=== PATIENT | female | born 1985 | race Two or more races ===

== ENCOUNTER 2019-02-27 10:04 | Emergency (ER) | payer OTHER, SELFPAY ==
[~2019-02-27] VITALS: Ht 160 cm; Wt 98.4 kg
--- NOTE | 2019-02-27 10:52 | NUR ---
MANAGER PROVIDER RELATIONS: PT TO ROOM FROM [facility]. INSTRUCTED ON COLLECTION OF MID STREAM URINE COLLECTION AND PT AMBULATED TO BATHROOM, UPRIGHT STEADY GAIT.
--- NOTE | 2019-02-27 11:30 | NUR ---
PT AWAITING LAB RESULTS. NO NEEDS
[2019-02-27 11:39] LABS: ANION GAP 8 mmol/L (5-15); CALCIUM 8.1 mg/dL (8.5-10.1); CHLORIDE 107 mmol/L (98-107); CREATININE 0.76 mg/dL (0.55-1.02)
[2019-02-27 11:40] LABS: BASOPHILS # (AUTO) 0.01 x10^3/uL (0-0.1); BASOPHILS % (AUTO) 0 % (0-1); EOSINOPHILS # (AUTO) 0.01 x10^3/uL (0-0.4); EOSINOPHILS % (AUTO) 0 % (1-7); LYMPHOCYTES # (AUTO) 0.72 x10^3/uL (1-3.4); LYMPHOCYTES % (AUTO) 15 % (22-44); MD NO; MEAN CORPUSCULAR HEMOGLOBIN 29.1 pg (27.0-34.8); MEAN CORPUSCULAR HGB CONC 34.4 g/dL (32.4-35.8); MEAN CORPUSCULAR VOLUME 84.7 fL (80-100); MEAN PLATELET VOLUME 9.1 fL (7.4-10.4); MONOCYTES # (AUTO) 0.34 x10^3/uL (0.2-0.8); MONOCYTES % (AUTO) 7 % (2-9); NEUTROPHILS # (AUTO) 3.72 x10^3/uL (1.8-6.8); NEUTROPHILS % (AUTO) 77 % (42-75); PLATELET COUNT 184 x10^3/uL (130-400); RED BLOOD COUNT 5.14 x10^6/uL (3.82-5.3)
--- NOTE | 2019-02-27 12:00 | NUR ---
PT RESTING WITH AT BEDSIDE. AWAITING RESULTS
[2019-02-27 12:45] VITALS: BP 122/70
== END 2019-02-27 12:47 | disposition home or self-care (01) ==
LOC: ED 11:43
DX: A08.4 Viral intestinal infection, unspecified (principal)
CPT/HCPCS: 36415; 80048; 84443; 85025; 99283